=== PATIENT | male | born 1975 | race American Indian/Alaskan Native ===

== ENCOUNTER 2018-11-26 11:38 | Outpatient (CLI) | payer OTHER | END 2018-11-26 11:39 | disposition home or self-care (01) | LOC: LAB 11:38 | PROVIDERS: ATTEND Specialist | DX: G35 Multiple sclerosis (principal); Z87.891 Personal history of nicotine dependence | CPT/HCPCS: 36415; 82607; 83921; 86592; 87806 ==

== ENCOUNTER 2019-01-04 07:48 | Outpatient (CLI) | payer OTHER ==
--- NOTE | 2019-01-04 08:20 | XRay Report ---
RIGHT ANKLE RADIOGRAPHS INDICATION: Ankle pain. COMPARISON: None similar at this institution. FINDINGS: AP, lateral and oblique right ankle radiographs demonstrate intact mortise, malleoli and talar dome contour. Normal soft tissues. CONCLUSION: Unremarkable exam. Thank you for the opportunity to participate in this patient's care.
--- NOTE | 2019-01-04 10:15 | Cat Scan Report ---
CT RIGHT LOWER EXTREMITY WITHOUT CONTRAST INDICATION: Hip and ankle pain. COMPARISON: Right ankle radiographs from today. FINDINGS: Noncontrast multiplanar CT reconstructions through the pelvis including both hips and both lower extremities demonstrate intact overall bony articulation. Bilateral hip degenerative changes noted with few subchondral cysts/spurring with slight surrounding sclerosis involving the femoral heads and acetabula, right more than left as on axial image 67, series 3, amongst others. Mild asymmetric right calcaneocuboid degenerative changes as slight spurring and few small subchondral hypodensities/cysts as on axial image 106, series 3 seen. Soft tissues and muscles grossly unremarkable. Stool noted throughout imaged colon and rectosigmoid/possible constipation. Few tiny prostatic calcifications. CONCLUSION: 1. Bilateral hip degenerative changes noted, right more than left, as described. Please correlate. 2. Mild right calcaneocuboid degenerative changes may also be seen. Thank you for the opportunity to participate in this patient's care.
== END 2019-01-04 07:49 | disposition home or self-care (01) ==
LOC: CT 07:48
PROVIDERS: ATTEND Internal Medicine
DX: M16.0 Bilateral primary osteoarthritis of hip (principal); M19.071 Primary osteoarthritis, right ankle and foot